=== PATIENT | male | born 1970 | race African-American/Black ===

== ENCOUNTER 2020-07-16 10:38 | Emergency (ER) | payer OTHER ==
[~2020-07-16] VITALS: Ht 175.3 cm; Wt 89.8 kg
[2020-07-16] MEDS ORDERED: CYCLOBENZAPRINE5 MG PO (13:01)
[2020-07-16] MEDS ORDERED: MOBIC7.5 MG PO (13:01)
[2020-07-16 13:22] VITALS: BP 171/108
== END 2020-07-16 13:32 | disposition home or self-care (01) ==
LOC: ER 10:38
DX: M54.5 Low back pain (principal); R51.9 Headache, unspecified; M25.562 Pain in left knee; V49.9XXA Car occupant (driver) (passenger) injured in unspecified traffic accident, initial encounter; Y93.89 Activity, other specified; Y92.89 Other specified places as the place of occurrence of the external cause; Y99.8 Other external cause status

== ENCOUNTER 2021-09-21 07:01 | Inpatient (IN) | payer OTHER ==
[2021-09-21] VITALS (7 sets, daily range): BP systolic 161–195; BP diastolic 102–120
[~2021-09-21] VITALS: Ht 175.3 cm; Wt 75.3 kg
[~2021-09-21 07:01] MED LIST: CYCLOBENZAPRINE5 MG PO; MOBIC7.5 MG PO
[2021-09-21 07:42] LABS: ABSOLUTE NEUTROPHILS 6.1 thou/uL (1.4-8.2); EOSINOPHILS 2.3 % (0.0-3.0); HEMATOCRIT 22.2 % (42.0-52.0); HEMOGLOBIN 7.1 gm/dL (14.0-18.0); LYMPHOCYTES 6.9 % (24.0-44.0); MCH 25.9 pg (26.0-34.0); MCHC 32.1 g/dL (28.0-37.0); MCV 80.7 fL (80.0-100.0); MONOCYTES 10.4 % (1.0-8.0); PLATELET COUNT 239 thou/uL (150-400); POLYS 79.4 % (36.0-66.0); RBC 2.75 mil/uL (4.50-6.00); RDW 15.2 % (10.5-14.5); WBC 7.7 thou/uL (4.0-11.0)
--- NOTE | 2021-09-21 07:47 | EKG ---
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 : 1970 Requested By: Allan Collins Order Number: [id number] MD: Dustin Worrell Measurements Intervals Caro Rate: 92 P: 61 RI: 157 QRS: 30 QRSD: 88 T: 61 QT: 347 QTc: 430 Interpretive Statements Sinus rhythm Probable left atrial enlargement Baseline wander in lead(s) II,III,aVL,aVF,V4,V5 No previous ECG available for comparison Electronically Signed On 09-21-2021 7:47:21 COLLISION REPAIRER by Dustin Worrell [email or web address] <ELECTRONICALLY SIGNED> By: Dustin Worrell MD, [facility] 09/21/21 0747 0730 0730 Dustin Worrell MD, FACC /EPI
[2021-09-21 07:50] LABS: CALCIUM 7.8 mg/dL (8.5-10.1); CREATININE 15.3 mg/dL (0.7-1.3); POTASSIUM 4.5 mmol/L (3.5-5.1)
[2021-09-21 07:58] LABS: URINE BILIRUBIN NEGATIVE (Negative); URINE BLOOD 2+ (Negative); URINE CLARITY CLEAR; URINE COLOR YELLOW; URINE GLUCOSE-RANDOM* TRACE (Negative); URINE KETONES NEGATIVE (Negative); URINE LEUKOCYTES-REFLEX NEGATIVE (Negative); URINE NITRITE-REFLEX NEGATIVE (Negative); URINE PROTEIN (DIPSTICK) 3+ (Negative); URINE UROBILINOGEN 0.2 E.U./dl (0.2-1.0)
[2021-09-21 08:22] LABS: CASTS None Seen /LPF (None Seen); SQUAMOUS 0-3 Few /LPF (0-3)
[2021-09-21 08:24] LABS: BACTERIA-REFLEX 1-9 Few /HPF (None Seen); CRYSTALS None Seen /LPF (None Seen); URINE RBC 1-2 Rare /HPF (NONE SEEN); URINE WBC-REFLEX 0-5 Rare /HPF (0-5)
[2021-09-21 12:41] LABS: % SATURATION 9 % (20-39); IRON 27 ug/dL (65-175); TIBC 293 ug/dL (250-450)
[2021-09-21 13:05] LABS: FOLIC ACID 16.3 ng/mL (8.6-58.9)
--- NOTE | 2021-09-21 18:11 | NUR ---
PT ADMITTED FROM ER FOR POSITIVE COVID AT 1200PM, PT IS A&OX4, PT IS ON ROOM AIR, PT'S BP HAS IMPROVED , PT'S VS ARE STABLE, PT DENIES SOB AND PAIN BY THIS TIME, PT HAS RENAL DR CONSULT,NEW ORDER 24HR URINE CHECK AND PT WILL KEEP NPO AFTER [place] FOR POSSIBLE DIALYSIS CATHETER PLACEMENT TOMORROW.
[2021-09-22 00:06] LABS: GLYCOHEMOGLOBIN (HGB A1C) 5.3 % (4.8-5.6)
[2021-09-22 01:51] VITALS: BP 158/97
[2021-09-22 04:58] VITALS: BP 138/63
[2021-09-22 05:19] LABS: HEMATOCRIT 21.8 % (42.0-52.0); HEMOGLOBIN 7.1 gm/dL (14.0-18.0); MCH 25.9 pg (26.0-34.0); MCHC 32.7 g/dL (28.0-37.0); RBC 2.76 mil/uL (4.50-6.00); RDW 14.8 % (10.5-14.5); WBC 7.4 thou/uL (4.0-11.0)
[2021-09-22 05:21] LABS: CALCIUM 7.3 mg/dL (8.5-10.1); CREATININE 14.8 mg/dL (0.7-1.3); PHOSPHORUS 7.3 mg/dL (2.5-4.9); POTASSIUM 4.6 mmol/L (3.5-5.1)
[2021-09-22 06:30] VITALS: BP 162/92
--- NOTE | 2021-09-22 06:55 | NUR ---
PT MAKING PROGRESS TOWARDS GOALS. REPORTING MILD HEADACHE OVERNIGHT. REPORTS DECREASE IN HEADACHE WHICH CORRRESPONDS WITH LOWERED BLOOD PRESSURE. DENIED NEED FOR ANY PAIN MEDICATION.
[2021-09-22 08:54] VITALS: BP 152/97
[2021-09-22 13:46] LABS: APTT 35.2 Seconds (24.5-32.8); INR 0.97; PROTIME 10.6 Seconds (10.5-12.1)
[2021-09-22 13:53] LABS: CALCIUM 7.6 mg/dL (8.5-10.1); CREATININE 15.6 mg/dL (0.7-1.3); PHOSPHORUS 7.7 mg/dL (2.6-4.7)
--- NOTE | 2021-09-22 15:48 | NUR ---
INITIAL ASSESSMENT: PONCE reviewed chart and spoke with nursing and attending physician. Pt was admitted from home due to renal failure. Pt placed in Enhanced Isolation due to COVID. Pt has not received a COVID vaccination. Pt with hx HTN/CKD stage 5. Pt is afebrile and on room air. Renal consulted. Pt to have tunneled catheter placed today and dialysis to be started. Pt listed as being uninsured. SW spoke with pt via phone. Introduced role of SW. Pt is alert/orientated x 4. Pt reports he is moving to [place] from [place]. Pt lives with his . Pt states he currently has [place] Medicaid, as he is disabled. Plan is for pt to remain in [place]. SW discussed need to establish outpatient dialysis. Pt verbalized understanding. SW notified pt that [facility] may be reaching out with him to assist with [place] Medicaid application. SW discussed options of dialysis companies. No preference voiced. PONCE faxed referral to [facility] and left voice message for Bella. SW sent message to [facility] to request assistance with Medicaid john. PONCE updated UR regarding pt's [place] Medicaid. PONCE is following to assist as needed with discharge planning.
[2021-09-22 16:59] LABS: PROT/CREAT RATIO 4.6; URINE CREATININE-RANDOM* 77.4 mg/dL; URINE PROTEIN-RANDOM* 352.8 mg/dL (<11.9)
[2021-09-22 17:59] VITALS: BP 142/127
--- NOTE | 2021-09-22 18:40 | NUR ---
RN ASSUMED PT'S CARE AT 0700AM, PT IS A&OX4, PT IS ON ROOM AIR , PT 'S VS ARE STABLE , PT DENIES PAIN AND SOB BY THIS TIME, PT HAS NEW DAILYSIS TUNNELED CATHETER AT R IJ, PT HAS HEMODILYSIS TO START ABOUT 1700PM, PT IS TOLERAIVE,
[2021-09-22 20:30] VITALS: BP 153/99
[2021-09-23 03:30] VITALS: BP 139/90
--- NOTE | 2021-09-23 05:23 | NUR ---
PT REPORTED "THIS IS THE BEST I'VE FELT IN A LONG WHILE" LAST NIGHT WHILE EATING. NO ISSURE REPORTED DURING FIRST DIALYSIS RUN.
[2021-09-23 06:03] VITALS: BP 156/107
[2021-09-23 08:55] VITALS: BP 176/116
[2021-09-23 12:58] VITALS: BP 149/85
--- NOTE | 2021-09-23 14:03 | NUR ---
PONCE reviewed chart and spoke with nursing and attending physician. Pt had tunneled dialysis catheter placed yesterday and has started dialysis. PONCE spoke with pt via phone to see if he has his [place] Medicaid card with him. Pt does not have his card. SW explained that his [place] card is needed to assist with arranging outpatient dialysis. Pt verbalized understanding. PONCE spoke with pt's via phone. Update provided. Pt's states she will check when she gets home to see if his card is there, or if she can find his policy number. Contact info for PONCE provided. Pt [place] a [place] residence yet. PONCE left voice message for Bella at [facility] intake to see if they are able to bill [place] Medicaid and assist with transferring pt's Medicaid to [place]. Case discussed with [facility]. [facility] contacted [facility]. Office is closed for the Holiday. No weekend discharge planned, as pt's insurance cannot be verified at this time. PONCE is following to assist as needed with discharge planning.
[2021-09-23 15:28] VITALS: BP 127/81
--- NOTE | 2021-09-23 18:46 | NUR ---
RN ASSUMED PT'S CARE AT 0700AM , PT IS A&OX4, PT HAS STARTED HIS DIALYSIS YESTODAY, PT IS TOLERATIVE HIS DAILYSIS TODAY, PT IS TOLERATIVE DAILYSIS , PT'S BP AND HEADCHE HAVE IMPROVED, PT IS CONTINUING COVID ISOLATION, PT DENIES SOB AT DAY SHIFT.
[2021-09-23 20:21] VITALS: BP 133/95
--- NOTE | 2021-09-23 23:25 | NUR ---
PT RESTING IN BED WATCHING TV. NO C/O HEADACHE. PT PROVIDED HS SNACK. NOT SOA. RIJ INTACT. PIV INTACT. PT CALLS FOR ASSISTANCE, STEADY GAIT INDEPENDENT.
[2021-09-24 02:49] LABS: HEMATOCRIT 22.6 % (42.0-52.0); HEMOGLOBIN 7.4 gm/dL (14.0-18.0); MCHC 32.8 g/dL (28.0-37.0); MCV 79.1 fL (80.0-100.0); RBC 2.86 mil/uL (4.50-6.00); RDW 14.9 % (10.5-14.5); WBC 5.4 thou/uL (4.0-11.0)
[2021-09-24 04:18] VITALS: BP 149/88
[2021-09-24 07:23] VITALS: BP 143/89
[2021-09-24 13:38] VITALS: BP 133/82
[2021-09-24 14:47] VITALS: BP 138/86
[2021-09-24 19:11] VITALS: BP 135/89
--- NOTE | 2021-09-24 23:30 | NUR ---
TOOK OVER CARE. PT ASLEEP IN BED. PT CALLS FOR ASSIST.
[2021-09-25 03:40] VITALS: BP 145/97
[2021-09-25 07:22] VITALS: BP 155/99
[2021-09-25 14:28] VITALS: BP 129/80
[2021-09-25 15:37] VITALS: BP 133/90
--- NOTE | 2021-09-25 16:54 | NUR ---
RN ASSUMED PT'S CARE AT 0700AM, PT IS A&OX4, PT IS ON ROOM AIR. PT IS CONTINUING DIALYSIS AND TREAT COVID MEDICATIONS, PT'S WEAKNESS HAS IMPROVED, PT'S HIGH BP HAS IMPROVED , PT'S O2SAT AND VS ARE STABLE BY THIS TIME,PT DEINES PAIN AND SOB BY THIS TIME.
--- NOTE | 2021-09-25 22:18 | NUR ---
PT WATCHING TV WHILE LAYING IN BED IN THE DARK. PT STATED PLANS FOR DC MONDAY. PT REPORTED DIALYSIS CATHETER SITE TENDER, PRN PROVIDED. PT CALLS FOR ASSIST. PT STATED HE DID NOT HAVE DIALYSIS TODAY.
[2021-09-26 04:30] LABS: ABSOLUTE NEUTROPHILS 4.1 thou/uL (1.4-8.2); BASOPHILS 0.7 % (0.0-2.0); EOSINOPHILS 2.1 % (0.0-3.0); HEMATOCRIT 22.6 % (42.0-52.0); HEMOGLOBIN 7.3 gm/dL (14.0-18.0); LYMPHOCYTES 21.3 % (24.0-44.0); MCHC 32.5 g/dL (28.0-37.0); MCV 79.8 fL (80.0-100.0); MONOCYTES 12.5 % (1.0-8.0); PLATELET COUNT 196 thou/uL (150-400); POLYS 63.4 % (36.0-66.0); RBC 2.83 mil/uL (4.50-6.00); WBC 6.4 thou/uL (4.0-11.0)
[2021-09-26 04:41] LABS: CREATININE 9.7 mg/dL (0.7-1.3); MAGNESIUM 1.9 mg/dL (1.8-2.4); POTASSIUM 3.8 mmol/L (3.5-5.1)
[2021-09-26 08:41] VITALS: BP 155/100
[2021-09-26 10:06] LABS: URINE PHOSPHORUS-mg/dl 29.9 mg/dL (Not Estab.)
[2021-09-26 15:15] VITALS: BP 151/91
--- NOTE | 2021-09-26 18:30 | NUR ---
RN ASSUMED PT'S CARE AT 0700AM, PT IS A&OX4,PT IS CONTINUING TREAT COVID MEDICATIONS, PT DENIES PAIN AND SOB, PT'S VS ARE STABLE AT DAY SHIFT, PT WILL HAVE DIALYSIS TOMORROW.
[2021-09-26 19:57] VITALS: BP 153/94
[2021-09-27 05:30] VITALS: BP 156/100
[2021-09-27 06:47] LABS: ALBUMIN 2.9 g/dL (3.4-5.0); CALCIUM 8.4 mg/dL (8.5-10.1); PHOSPHORUS 6.4 mg/dL (2.5-4.9); POTASSIUM 3.9 mmol/L (3.5-5.1)
[2021-09-27 07:13] VITALS: BP 162/116
--- NOTE | 2021-09-27 11:03 | NUR ---
PONCE notified by [employer] that pt does have Medicare parts A&B and then Medicaid of [place] is secondary. PONCE faxed updated face sheet and clinical info to [facility] intake. Left voice message for Bella to provide update. Pt to have dialysis today and is medically stable for discharge. Pt remains in Enhanced Isolation due to COVID. PONCE is awaiting call back from [facility] to assist with arranging outpatient dialysis. PONCE is following to assist as needed with discharge planning.
[2021-09-27 12:06] LABS: HEPATITIS B SURFACE AG Negative (Negative)
[2021-09-27 13:22] VITALS: BP 160/100
[2021-09-27 15:04] VITALS: BP 160/100
[2021-09-27] MEDS ORDERED: RENVELA800 MG PO (15:20)
[2021-09-27] MEDS ORDERED: CALCITRIOL0.25 MCG PO (15:20)
[2021-09-27] MEDS ORDERED: CARVEDILOL3.125 MG PO (15:20)
[2021-09-27] MEDS ORDERED: VITAMIN D325 MC2 PO (15:20)
[2021-09-27] MEDS ORDERED: NIFEDIPINE ER30 M1 PO (15:20)
[2021-09-27 15:21] VITALS: BP 138/79
--- NOTE | 2021-09-27 19:24 | NUR ---
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
--- NOTE | 2021-09-28 08:26 | NUR ---
SW faxed discharge ppwk and Hep B Surface Antigen results to [facility]. Received fax confirmation. No additional SW needs identified at this time. PONCE is following to assist as needed with discharge planning.
--- NOTE | 2021-09-29 13:19 | NUR ---
PONCE received call from Bella at [facility] requesting pt's dialysis flow sheets to be faxed to her. SW printed from scanned images and faxed to [facility]. Received fax confirmation. No additional SW needs identified at this time. PONCE is following to assist as needed with discharge planning.
== END 2021-09-27 18:37 | disposition home or self-care (01) | DRG 177 ==
LOC: ER 07:01 → EROBS 09:20 → 3W 09:20
PROVIDERS: Hospitalist; Internal Medicine Nephrology; Nurse Practitioner; Radiology Diagnostic Radiology; Student in an Organized Health Care Education/Training Program; ADMIT Hospitalist; ATTEND Hospitalist
PROC: B5181ZA Fluoroscopy of Superior Vena Cava using Low Osmolar Contrast, Guidance (ICD-10-PCS; principal; 2021-09-22)
PROC: 5A1D70Z Performance of Urinary Filtration, Intermittent, Less than 6 Hours Per Day (ICD-10-PCS; principal; 2021-09-22)
PROC: B548ZZA Ultrasonography of Superior Vena Cava, Guidance (ICD-10-PCS; principal; 2021-09-22)
PROC: 02HV33Z Insertion of Infusion Device into Superior Vena Cava, Percutaneous Approach (ICD-10-PCS; principal; 2021-09-22)
PROC: 0JH63XZ Insertion of Tunneled Vascular Access Device into Chest Subcutaneous Tissue and Fascia, Percutaneous Approach (ICD-10-PCS; principal; 2021-09-22)
PROC: 5A1D70Z Performance of Urinary Filtration, Intermittent, Less than 6 Hours Per Day (ICD-10-PCS; 2021-09-23)
PROC: 5A1D70Z Performance of Urinary Filtration, Intermittent, Less than 6 Hours Per Day (ICD-10-PCS; 2021-09-24)
PROC: 5A1D70Z Performance of Urinary Filtration, Intermittent, Less than 6 Hours Per Day (ICD-10-PCS; 2021-09-27)
DX: U07.1 COVID-19 (principal); N18.6 End stage renal disease; N17.9 Acute kidney failure, unspecified; I16.1 Hypertensive emergency; I12.0 Hypertensive chronic kidney disease with stage 5 chronic kidney disease or end stage renal disease; F12.90 Cannabis use, unspecified, uncomplicated; R80.9 Proteinuria, unspecified; E83.9 Disorder of mineral metabolism, unspecified; D63.1 Anemia in chronic kidney disease; Z79.899 Other long term (current) drug therapy
CPT/HCPCS: 10080; 10879; 32100